=== PATIENT | female | born 1985 | race Two or more races ===

== ENCOUNTER 2016-11-22 08:26 | Emergency (ER) | payer MEDICAID ==
[~2016-11-22] VITALS: Ht 157.5 cm; Wt 82.6 kg
[2016-11-22 08:40] VITALS: BP 114/45
[2016-11-22] MEDS ORDERED: KETOROLAC TROMETH 60MG/2ML VIAL IM ONE (09:15)
== END 2016-11-22 10:13 | disposition home or self-care (01) ==
LOC: ER 08:26
DX: S46.911A Strain of unspecified muscle, fascia and tendon at shoulder and upper arm level, right arm, initial encounter (principal); X58.XXXA Exposure to other specified factors, initial encounter; Y93.89 Activity, other specified; Y99.8 Other external cause status; Y92.89 Other specified places as the place of occurrence of the external cause
CPT/HCPCS: 73130; 96372; 99284; J1885